=== PATIENT | female | born 1995 | race Caucasian/White ===

== ENCOUNTER → 2018-10-12 | Outpatient (CLI) | payer OTHER ==
--- NOTE | 2018-10-12 15:50 | PCVCIMAG ---
APPROVED REPORT Study performed: 10/12/2018 14:22:53 EXAM: Comprehensive 2D, Doppler, and color-flow Echocardiogram Patient Location: Echo lab Status: routine BSA: 1.59 HR: 70 bpmBP: 90/60 mmHg Rhythm: NSR Other Information Study Quality: Good Indications Syncope PVC's 2D Dimensions IVSd: 6.42 (7-11mm)LVOT Diam: 18.10 (18-24mm) LVDd: 39.33 mm PWd: 7.32 (7-11mm)Ascending Ao: 26.91 (22-36mm) LVDs: 31.11 (25-40mm) Left Atrium: 26.87 (27-40mm) Aortic Root: 23.49 mm LV Single Plane 4CH: 55.26 % LV Single Plane 2CH: 66.95 % Biplane EF: 61.5 % Volumes Left Atrial Volume (Systole) Single Plane 4CH: 20.73 mLSingle Plane 2CH: 39.26 mL LA ESV Index: 19.00 mL/m2 Aortic Valve AoV Peak Sivakumar.: 1.38 m/s AO Peak Gr.: 7.60 mmHgLVOT Max P.64 mmHg LVOT Max V: 0.95 m/s BROOKE Vmax: 1.78 cm2 Mitral Valve E/A Ratio: 1.7 MV Decel. Time: 216.92 ms MV E Max Sivakumar.: 0.75 m/s MV A Sivakumar.: 0.43 m/s TDI E/Lateral E': 4.17E/Medial E': 5.00 Medial E' Sivakumar.: 0.15 m/s Lateral E' Sivakumar.: 0.18 m/s Pulmonary Valve PV Peak Gr.: 2.85 mmHg Pulmonary Vein P Vein S: 0.58 m/sP Vein A: 0.28 m/s P Vein D: 0.70 m/s P Vein S/D Ratio: 0.83 Tricuspid Valve TR Peak Sivakumar.: 2.42 m/s TR Peak Gr.: 23.51 mmHg Left Ventricle The left ventricle is normal size. There is normal LV segmental wall motion. There is normal left ventricular wall thickness. Left ventricular systolic function is normal. The left ventricular ejection fraction is within the normal range. LVEF is 60-65%. The left ventricular diastolic function is normal. Right Ventricle The right ventricle is normal size. The right ventricular systolic function is normal. Atria The left atrium size is normal. The right atrium size is normal. Aortic Valve The aortic valve is normal in structure. No aortic regurgitation is present. There is no aortic valvular stenosis. Mitral Valve The mitral valve is normal in structure. Trace mitral regurgitation. No evidence of mitral valve stenosis. Tricuspid Valve The tricuspid valve is normal in structure. Mild tricuspid regurgitation. Pulmonary artery pressure is 27mmHg. Pulmonic Valve The pulmonary valve is normal in structure. There is no pulmonic valvular regurgitation. Great Vessels The aortic root is normal in size. IVC is normal in size and collapses >50% with inspiration. Pericardium There is no pericardial effusion. <Conclusion> The left ventricle is normal size. There is normal left ventricular wall thickness. Left ventricular systolic function is normal. The left ventricular diastolic function is normal. The right ventricle is normal size. The left atrium size is normal. The right atrium size is normal. The aortic valve is normal in structure. Trace mitral regurgitation. Mild tricuspid regurgitation. Pulmonary artery pressure is 27mmHg.
--- NOTE | 2018-10-12 16:14 | PCVCIMAG ---
APPROVED REPORT Patient Location: Echo lab Room #: Stress Nurse: Courtney Lim RN Indication: Syncope, PVC's. The patient exercised according to the YANG protocol for15:01 mins; achieving a work level of METS. 17.20. The resting heart rate of 89 bpm vel to a maximum heart rate of 200 bpm. This value [id number] % of the maximal, age-predicted heart rate. The resting blood pressure of 90/60 mmHg, vel to a maximum blood pressure of132/68 mmHg. The exercise test was stopped due to fatigue, target heart rate. Conclusion 1. Clinical response, nonischemic. 2. Stress ECG response, nonischemic. 3. Exercise capacity, superior.
== END | disposition home or self-care (01) ==
LOC: PCVCIMAG 14:17
PROVIDERS: ATTEND Internal Medicine Cardiovascular Disease
DX: I07.1 Rheumatic tricuspid insufficiency (principal); R55 Syncope and collapse; I49.3 Ventricular premature depolarization
CPT/HCPCS: 93017; 93306